=== PATIENT | male | born 1990 | race Caucasian/White ===

== ENCOUNTER 2019-06-13 19:23 | Emergency (ER) | payer OTHER, SELFPAY ==
[2019-06-13] VITALS (34 sets, daily range): BP systolic 133–185; BP diastolic 33–124; PULSE 89–157; RESP 9–20; TEMP 36.6–38.1; O2SAT 93–100
--- NOTE | 2019-06-13 19:37 | ED.GENADUL_ITS ---
Discharge Plan Disposition Patient Disposition: [facility] Condition: Stable Discharge Details Chief Complaint: DentalOral Clinical Impression: Stridor, Dental infection Primary Care Provider: [facility] Provider: Aureliano Alvarenga Home Meds and New Rx's Prescriptions: No Action acetaminophen 325 mg Tablet 650 mg PO BID PRNRF: 0 methylphenidate HCl 20 mg Tablet 20 mg PO BID RF: 0 ceftriaxone 1 gram Recon Soln 1 g IM ONCE RF: 0 amoxicillin 875 mg Tablet 875 mg PO BID RF: 0 ibuprofen 600 mg Tablet 600 mg PO BID PRNRF: 0 Minerin Creme Cream 1 applic TOPICAL PRN PRNRF: 0 Subutex 8 mg tablet 16 mg PO DAILY RF: 0 Medical Decision Making 29 yo male comes in with 3 days of left lower jaw pain and increased swelling. Is in correction and has been on amoxicillin for 48 hours and also got IM ceftriaxone but despite this swelling and pain have increased and he now has throat pain so came here. Denies fevers, chills, is speaking and swallowing currently normal without stridor. Doeshave swelling under left submandibular area, no pain over hyoid. Given increased pain and swelling will obtain imaging to eval for absces s, monishas. Pt arrived back from CT and is now complaining of increased dyspnea and difficulty swallowing still no stridor or drooling on exam. Feel he is at risk for difficult airway and since this is progressing feel he should have his airway secured, will consult with anesthesia Pt became more stridorous and was not swallowing well. With YOKER MACHINE OPERATOR at bedside and using a size 3 glidescope blade I was able to obtain a grade I view and passed a 7.0 ET tube. He remained HD stbale without complications during this. [facility] [place] [facility] [place] accept [place] transfer, Dr. chandra the acceepting prov ider Differential Diagnosis Differential Diagnosis: ludwigs, dental abscess, rpa Imaging Data Radiologic Study: Attestation: I personally reviewed and interpreted this imaging study as follows: Imaging: CT Scan Radiologist's impression: Multiple dental caries. Periapical lucency surrounding the left mandibular 1st molar tooth with dehiscence of the buccal cortex. There are adjacent inflammatory/phlegmonous changes in the buccal space corresponding to the clinically apparent left lower jaw swelling. No abscess. Radiologic Study #2: Attestation: I personally reviewed and interpreted this imaging study as follows: Imaging: X-Ray Radiologist's impression: et tube in good position no other acute findings Lab Data Lab results reviewed: Yes I reviewed the patient's lab results. HPI General Mode of arrival: ambulatory . Date/Time Provider Initiated Documentation: 06/13/19 19:29 . Limitations to Documentation: no limitations . Information obtained by: patient . History of Present Illness 28 year old M presents to the emergency department with the chief complaint of left lower jaw pain, described as moderate, Patient started experiencing this day(s) (3) and it has been constant. No relieving factors improve symptom(s), No exacerbating factors reported . Patient did receive the following treatments prior to arrival, none Related Data Home Medications Medication Instructions Recorded Confirmed Subutex 16 mg PO DAILY 06/13/19 acetaminophen 650 mg PO BID PRN 06/13/19 06/13/19 amoxicillin 875 mg PO BID 06/13/19 06/13/19 ceftriaxone 1 g IM ONCE 06/13/19 06/13/19 ibuprofen 600 mg PO BID PRN 06/13/19 06/13/19 lanolin jvljpub-ex-r.pet-ceres 1 applic TOPICAL PRN PRN 06/13/19 06/13/19 [Minerin Creme] methylphenidate HCl 20 mg PO BID 06/13/19 06/13/19 Allergies Allergy/AdvReac Type Severity Reaction Status Date / Time No Known Allergies Allergy Unverified 06/13/19 19:28 General Stated Complaint: DentalOral CARLY: 3 Review of Systems All systems reviewed & are unremarkable except as noted in HPI and below Constitutional Constitutional: Denies chills, Denies fever(s) and Denies weakness ENT Ears, Nose, Mouth, and Throat: Denies change in voice Cardiovascular Cardiovascular: Denies chest pain and Denies dyspnea Respiratory Respiratory: Denies cough and Denies dyspnea Gastrointestinal Gastrointestinal: Denies abdominal pain, Denies nausea and Denies vomiting Musculoskeletal Musculoskeletal: Denies joint swelling Neurologic Neurologic: Denies weakness [facility] Social History Smoking/Tobacco Use Status: Former Tobacco Use Substance use type: does not use Do you feel safe at home: Yes Do you feel safe in your relationship?: Yes Exam Const General: no acute distress Orientation: alert HENMT Head: normal to inspection Ears: external ears normal General nose exam: external nose normal Mouth: moist mucous membranes Eyes General: appearance normal, both eyes and all related structures Neck Neck: normal visual inspection Resp Effort & Inspection: normal respiratory effort and able to speak in complete sentences Cardio Rate: regular rate Skin General skin exam: no rashes or lesions noted Neuro General: alert and oriented x3 Extrem General: normal to inspection Psych Mental Status: mental status grossly normal Course Vital Signs Vital signs: Vital Signs Temperature 37.4 C 06/13/19 19:26 Pulse 98 H 06/13/19 19:26 Respiratory Rate 20 06/13/19 19:26 Blood Pressure 161/83 H 06/13/19 19:26 Temperature 37.4 C 06/13/19 19:26 Temperature Source Temporal Artery Scan 06/13/19 19:26 Pulse 98 H 06/13/19 19:26 Respiratory Rate 20 06/13/19 19:26 Blood Pressure 161/83 H 06/13/19 19:26 Pain Level 8 06/13/19 19:26 Lab/Test Results Lab/Test Results: 06/13/19 19:32 Blood Blood Culture - Pending 06/13/19 19:32 Blood Blood Culture - Pending Procedures Intubation Time out performed: Yes sedative: other (propofol) Mg Given: 100 paralytic: Rocuronium Mg Given: 120 Laryngoscope: other (size 3 glidescope) ET Tube Size: 7 ET Tube Uncuffed: Yes Tube Secured Depth (cm): 24 Tube Secured Location: lips Tube Placement Confirmation: visualized tube passing through cords Patient Tolerated Procedure: well Intubation Complications: none
[2019-06-13] MEDS: Dexamethasone 10 MG/ML VIAL (19:55)
[2019-06-13] MEDS: Omnipaque 350 MG/ML 100 ML BTL IJ (19:59)
--- NOTE | 2019-06-13 20:00 | DI.CT_ITS ---
EXAM: CT NECK W CLINICAL HISTORY: left lower jaw swelling and throat pain, ?abscess TECHNIQUE: CT examination of the cervicofacial region was performed with intravenous infusion of 100 cc of Omnipaque 350. COMPARISON: No exams were available for comparison FINDINGS: Visualized brain is unremarkable. Orbital structures appear intact. Paranasal cysts sinuses are cl ear except for mild mucoperiosteal thickening right maxillary antrum. Mastoid air cells and temporal bone structures appear unremarkable. No cervical mass or adenopathy. Tracheolaryngeal structures ap pear intact. Superior mediastinum and lung apices are unremarkable. There is soft tissue swelling over the left mandible. There is streak artifact from dental amalgams which limits interpretation. No gross abscess identified. The salivary glands are unremarkable IMPRESSION: Left perimandibular/facial edema, no abscess identified.
[2019-06-13] MEDS: Normal Saline 1,000 ML 1000 ML IV (20:01)
[2019-06-13] MEDS: Normal Saline Flush 10 ML SYR IVP (20:01)
[2019-06-13 20:05] LABS: Abs Immature Grans 0.02 k/cumm (0.0-0.09); Absolute Basophil Count 0.01 k/cumm (0.0-0.2); Absolute Eosinophil Count 0.08 k/cumm (0.0-0.7); Absolute Lymphocyte Count 2.09 k/cumm (1.2-3.4); Absolute Monocyte Count 1.08 k/cumm (0.11-0.7); Absolute Neutrophil Count 7.95 k/cumm (1.2-6.7); Basophils % 0.1; Eosinophils % 0.7; HCT 38.3 % (40.0-50.0); HGB 13.4 g/dL (13.5-17.5); Immature Grans % 0.2; Lymphocytes % 18.6; Mean Corpuscular Hemoglobin 30.7 pg (27.0-33.0); Mean Corpuscular Volume 87.6 fL (80-95); Mean Platelet Volume 9.6 fL (8.0-11.0); Monocytes % 9.6; Neutrophils % 70.8; Platelet Count 199 x1000/uL (130-400); RBC 4.37 m/cumm (4.50-6.00); RBC Distribution Width 11.8 % (11.8-14.1); White Blood Cell Count 11.23 k/cumm (4.4-10.8)
[2019-06-13 20:17] LABS: ALT 19 U/L (16-63); AST 13 U/L (15-37); Albumin 4.1 g/dL (3.4-5.0); Alkaline Phosphatase 69 U/L (46-116); Anion Gap 7.7 mmol/L (3-11); BUN 16 mg/dL (7-18); Bilirubin, Total 0.6 mg/dL (0.2-1.0); CO2 33.3 mmol/L (21.0-32.0); Calcium 8.9 mg/dL (8.5-10.1); Chloride 102 mmol/L (98-107); Glucose 94 mg/dL (74-106); Potassium 4.4 mmol/L (3.5-5.1); Sodium 143 mmol/L (136-145); Total Protein 7.8 g/dL (6.4-8.2)
--- NOTE | 2019-06-13 20:36 | NUR.NOTE ---
Voided in urinal. #20 diffusics to RAC. Voice muffled, speaking in full sentences, intermittent snoring respirations when sleeping. maintaining sat 97% on RA. Large swelling to left face. tolerating own secretions. pt and natural resource officer updated as to plan of care.
--- NOTE | 2019-06-13 20:48 | DI.VRAD_ITS ---
PROCEDURE INFORMATION: Exam: CT Neck With Contrast Exam date and time: 06/13/2019 7:34 PM Age: 29 years old Clinical indication: Mass, lump, or swelling in neck; Patient HX: Left lower jaw swelling and throat pain; Additional info: ? Abscess TECHNIQUE: Imaging protocol: Computed tomography images of the neck with intravenous contrast. COMPARISON: No relevant prior studies available. FINDINGS: Nasopharynx: Unremarkable. Oropharynx: Unremarkable. No significant tonsillar enlargement. Hypopharynx: Unremarkable Larynx: Unremarkable. Normal epiglottis. Retropharyngeal space: Unremarkable. Submandibular/Parotid glands: Normal. Glands are normal in size. Thyroid: Normal. No enlarged or calcified nodules. Lymph nodes: Unremarkable. No lymphadenopathy. Trachea: Visualized trachea is unremarkable. Lungs: Unremarkable as visualized. Dental: Multiple dental caries. Periapical lucency surrounding the left mandibular 1st molar tooth with dehiscence of the buccal cortex. Bones/joints: No acute fracture. Soft tissues: Inflammatory/phlegmonous changes in the buccal space corresponding to the clinically apparent left lower jaw swelling. No abscess. IMPRESSION: Multiple dental caries. Periapical lucency surrounding the left mandibular 1st molar tooth with dehiscence of the buccal cortex. There are adjacent inflammatory/phlegmonous changes in the buccal space corresponding to the clinically apparent left lower jaw swelling. No abscess. Dictated and Authenticated by: Robert Martinez MD. Ordering:DIEGO Bedoya MD
--- NOTE | 2019-06-13 21:16 | DI.RAD_ITS ---
EXAM: XR PORTABLE CHEST AP POST LINE CLINICAL HISTORY: Tube Placement TECHNIQUE: COMPARISON: No exams were available for comparison FINDINGS: Semi supine AP chest was obtained. There is an endotracheal tube which lies about 2.7 cm above elías a. The heart is not enlarged. Lungs are grossly clear. IMPRESSION: ET tube in place. Otherwise grossly unremarkable study.
[2019-06-13] MEDS: Propofol 200 MG/20 ML VIAL 90 MG IVP (21:19)
[2019-06-13] MEDS: PROPOFOL 1,000 MG/100 ML BTL 2.82 MG IVPB (21:23)
[2019-06-13] MEDS: AMPICILLIN/SULBACTAM 3 GM in Normal Saline 100 ML IVPB (21:24)
--- NOTE | 2019-06-13 21:43 | NUR.NOTE ---
HI TEACHER in room at 2100 for intubation. time out done. 2108 100mg propofol, 120mg rocuronium given LAC 2110 intubated with 7.0 ETT, 24 @lip 2113 propofol drip started at 5mcg/kg.min, 2.8mL, 94kg
--- NOTE | 2019-06-13 21:46 | DI.VRAD_ITS ---
PROCEDURE INFORMATION: Exam: XR Chest, 1 View Exam date and time: 06/13/2019 9:29 PM Age: 28 years old Clinical indication: Device placement; Patient HX: Post intubation/tube placement TECHNIQUE: Imaging protocol: XR of the chest Views: 1 view. COMPARISON: No relevant prior studies available. FINDINGS: Tubes, catheters and devices: ET tube in good position. Lungs: Clear lungs. Pleural space: No pneumothorax. No sizable pleural effusion. Heart/Mediastinum: No cardiomegaly. Bones/joints: Unremarkable. IMPRESSION: 1. ET tube in good position. 2. Clear lungs. Dictated and Authenticated by: Robert Martinez MD. Ordering:DIEGO Bedoya MD
[2019-06-13 22:01] LABS: BE 2.8 mmol/L (-3-3); HCO3 28 mmol/L (22-28); pCO2 45 mmHg (34-47); pO2 74 mmHg (83-108); sO2 95 % (94-98); tCO2 25 mmol/L (22-29)
[2019-06-13 22:02] LABS: Site Left Radial
[2019-06-13] MEDS: Normal Saline 1,000 ML 150 ML IV (22:02)
[2019-06-13] MEDS: CLINDAMYCIN 900 MG/50 ML BAG 50 MG IVPB (22:02)
--- NOTE | 2019-06-13 22:02 | NUR.NOTE ---
pt moving feet, bolus with 50mg of propofol, infusion up to 10mcg/kg/min. Continued to move feet after 5 min, infusion titrated up to 15mcg/kg/min.
--- NOTE | 2019-06-13 22:30 | NUR.NOTE ---
Transferred out via [facility]. Given a bottle of propofol and vial of vecuronium for ride to [facility]. belingings sent with debt recovery officer. Report given to [facility] at corrections facility by NORI Anaya. Report to [facility] by NORI Pardo.
== END 2019-06-13 22:30 | disposition short-term general hospital (02) ==
PROVIDERS: Emergency Provider Emergency Medicine
DX: R22.0 Localized swelling, mass and lump, head (principal); R50.9 Fever, unspecified; R06.1 Stridor; K04.7 Periapical abscess without sinus; R68.84 Jaw pain
CPT/HCPCS: 31500; 36415; 70491; 71045; 80053; 82805; 87040; 96361; 96365; 96367; 96368; 96375; 96376; 99285; 85025; J0295; J1100; J3490